=== PATIENT | female | born 1960 | race Caucasian/White ===

== ENCOUNTER 2021-01-10 07:57 | Outpatient (REF) | payer OTHER, SELFPAY ==
--- NOTE | ~2021-01-10 | XR_ITS ---
EXAMINATION: XR CHEST CLINICAL INFORMATION: Renal cancer COMPARISON: Previous chest x-ray October [address] 06/09/2020 TECHNIQUE: Frontal view of the chest was obtained. FINDINGS: No significant abnormality is noted involving the heart, lungs, mediastinum, bony thorax or soft tissues. XR/XR chest 1V IMPRESSION: Unremarkable examination.
[2021-01-10 10:13] LABS: Blood Urea Nitrogen 25 mg/dL (9-16); Estimated Glomerular Filt Rate 46
== END 2021-01-10 07:58 | disposition home or self-care (01) ==
LOC: HO.LAB 07:57
PROVIDERS: PCP Internal Medicine; Visit Provider Urology
DX: N26.1 Atrophy of kidney (terminal) (principal); N28.1 Cyst of kidney, acquired; C64.1 Malignant neoplasm of right kidney, except renal pelvis
CPT/HCPCS: 36415; 71045; 82565; 84520

== ENCOUNTER → 2021-01-15 10:33 | Outpatient (BNVA) | payer OTHER, SELFPAY | PROVIDERS: PCP Internal Medicine; Visit Provider Urology | DX: C64.9 Malignant neoplasm of unspecified kidney, except renal pelvis (principal) | CPT/HCPCS: 99212 ==

== ENCOUNTER 2021-09-05 07:32 | Outpatient (REF) | payer OTHER, SELFPAY ==
[2021-09-05 08:25] LABS: Hematocrit 42.1 % (37-47); Hemoglobin 13.9 g/dl (12.0-16.0); Mean Corpuscular Hemoglobin 29.6 pg (27.0-33.0); Mean Corpuscular Volume 89.8 fL (80-98); Mean Platelet Volume 8.6 fL (9.4-12.3); Platelet Count 278 X10*3/uL (160-400); Red Blood Count 4.69 X10*6/uL (4.20-5.50); Red Cell Distribution Width 13.4 % (11.0-16.0); White Blood Count 10.1 X10*3/uL (4.8-10.8)
[2021-09-05 09:15] LABS: Blood Urea Nitrogen 20 mg/dL (9-16); Estimated Glomerular Filt Rate 38
== END 2021-09-05 07:33 | disposition home or self-care (01) ==
LOC: HO.LAB 07:32
PROVIDERS: PCP Internal Medicine; Visit Provider Urology
DX: N26.1 Atrophy of kidney (terminal) (principal); N28.1 Cyst of kidney, acquired; C64.9 Malignant neoplasm of unspecified kidney, except renal pelvis
CPT/HCPCS: 36415; 82565; 84520; 85027

== ENCOUNTER 2021-09-10 13:42 | Outpatient (REF) | payer OTHER, SELFPAY ==
--- NOTE | ~2021-09-10 | CT_ITS ---
EXAMINATION: CHEST X-RAY CLINICAL INFORMATION: Kidney cancer COMPARISON: Previous chest x-ray December 2020 TECHNIQUE: One view of the chest FINDINGS: The cardiac and mediastinal contours are normal. The lungs are clear. There is no pleural effusion or pneumothorax. There are degenerative changes of the spine. CT/CT abdomen w con IMPRESSION: No evidence for acute disease in the chest. EXAMINATION: CT of the abdomen with IV contrast CLINICAL INFORMATION: Kidney cancer COMPARISON: Previous CT of the abdomen and pelvis May 2020 TECHNIQUE: Axial images through the abdomen following oral and IV contrast. Sagittal and coronal reconstructions on the technologist workstation were performed following oral and 100 mL Omnipaque 350 intravenous contrast. Sagittal and coronal options on the technologist workstation were performed patient dose 9 8 7 mg/cm. This CT examination was performed using dose optimization techniques as appropriate, variously including the following: *Automated exposure control *Adjustment of mA and/or kV according to patient size (this includes techniques or standardized protocols for targeted exams where dose is matched to indication/reason for exam; i.e. extremities or head) *Use of iterative reconstruction technique FINDINGS: The lung bases are clear. The liver is enlarged. The liver is low in attenuation suggestive of fatty lesion. No focal liver lesion is seen. The spleen, pancreas and adrenal glands are normal. The right kidney has been removed. No abnormal soft tissue is seen in the right renal fossa. The left kidney is unremarkable. There is a right lateral abdominal wall or spigelian hernia containing small bowel. There is an umbilical hernia containing fat. There is diverticulosis of the colon. Right lateral abdominal wall or spigelian hernia containing small bowel. No evidence of obstruction. There are no enlarged lymph nodes. Small retroperitoneal lymph node adjacent to the right common iliac vessels that are stable. There is no ascites. Vascular structures are normal. There are degenerative changes of the spine. IMPRESSION: Post surgical changes following right nephrectomy. No evidence of recurrent or metastatic disease. Enlarged fatty liver. Right lateral abdominal wall or spigelian hernia containing all bowel. No evidence of obstruction.
[2021-09-10] MEDS: iohexoL 350 MG/ML 100 ML INFUS..BTL IV (14:57)
== END 2021-09-10 13:43 | disposition home or self-care (01) ==
LOC: HO.CT 13:42
PROVIDERS: PCP Internal Medicine; Visit Provider Urology
DX: C64.9 Malignant neoplasm of unspecified kidney, except renal pelvis (principal)
CPT/HCPCS: 71045; 74160; Q9967

== ENCOUNTER → 2021-10-08 10:32 | Outpatient (BNVA) | payer OTHER, SELFPAY | PROVIDERS: PCP Internal Medicine; Visit Provider Urology ==

== ENCOUNTER 2022-04-17 07:49 | Outpatient (REF) | payer OTHER, SELFPAY ==
--- NOTE | ~2022-04-17 | XR_ITS ---
EXAMINATION: XR CHEST CLINICAL INFORMATION: Renal cancer COMPARISON: September 10, 2021 TECHNIQUE: Frontal view of the chest was obtained. FINDINGS: No significant abnormality is noted involving the heart, lungs, mediastinum, bony thorax or soft tissues. XR/XR chest 1V IMPRESSION: No acute disease.
== END 2022-04-17 07:50 | disposition home or self-care (01) ==
LOC: HO.XRAY 07:49
PROVIDERS: PCP Internal Medicine; Visit Provider Urology
DX: C64.9 Malignant neoplasm of unspecified kidney, except renal pelvis (principal)
CPT/HCPCS: 71045

== ENCOUNTER → 2022-04-21 11:57 | Outpatient (BNVA) | payer OTHER, SELFPAY | PROVIDERS: PCP Internal Medicine; Visit Provider Urology | DX: Z13.89 Encounter for screening for other disorder (principal) ==

== ENCOUNTER 2022-10-09 07:29 | Outpatient (REF) | payer OTHER, SELFPAY ==
[2022-10-09 08:38] LABS: Blood Urea Nitrogen 21 mg/dL (9-16); Estimated Glomerular Filt Rate 38
== END 2022-10-09 07:30 | disposition home or self-care (01) ==
LOC: HO.LAB 07:29
PROVIDERS: PCP Internal Medicine; Visit Provider Urology
DX: C64.9 Malignant neoplasm of unspecified kidney, except renal pelvis (principal)
CPT/HCPCS: 36415; 82565; 84520

== ENCOUNTER 2022-10-19 14:36 | Outpatient (REF) | payer OTHER, SELFPAY ==
--- NOTE | ~2022-10-19 | CT_ITS ---
EXAMINATION: CT CHEST WITH CONTRAST CLINICAL INFORMATION: History of kidney cancer COMPARISON: Previous chest x-ray most recent March [address] May 2020 TECHNIQUE: Multidetector volumetric CT imaging of the chest was obtained after the administration of 85 mL of Omnipaque 350 intravenous contrast without immediate adverse reactions. Axial MIP volume rendering provided. Sagittal and coronal reformatted images were obtained. This CT examination was performed using dose optimization techniques as appropriate, variously including the following: *Automated exposure control *Adjustment of mA and/or kV according to patient size (this includes techniques or standardized protocols for targeted exams where dose is matched to indication/reason for exam; i.e. extremities or head) *Use of iterative reconstruction technique DLP: 247 mGy-cm FINDINGS: LUNGS: 2 mm left upper lobe nodule axial image 53 series 6. 4 mm left lower lobe nodule axial image 59 series 6. 4 mm left upper lobe nodule axial image 61 series 6. These are stable. No new pulmonary nodule. MEDIASTINUM: The left lobe of the thyroid gland may be enlarged and heterogeneous. This is similar to 2020 exam. No hilar or mediastinal lymph nodes. Normal heart size. No pericardial effusion. Normal caliber thoracic aorta. Mild coronary artery calcification. PLEURA: There is no pleural effusion. No pleural mass or thickening. AXILLA: No lymphadenopathy. UPPER ABDOMEN: Fatty infiltration of the liver. Postcholecystectomy. Stable peripheral calcification in the right lobe. OSSEOUS STRUCTURES: Degenerative changes of the spine. CT/CT chest w IV con IMPRESSION: Stable small left pulmonary nodules. Recommend follow-up as per protocol. Fleischner guidelines were followed.
--- NOTE | ~2022-10-19 | CT_ITS ---
EXAMINATION: CT ABDOMEN AND PELVIS WITHOUT AND WITH CONTRAST CLINICAL INFORMATION: Kidney cancer COMPARISON: Previous CT of the abdomen and pelvis August 2021 TECHNIQUE: Multidetector volumetric imaging was performed of the abdomen and pelvis before and after the IV administration of 85 mL of Omnipaque 300 intravenous contrast. Sagittal and coronal reformatted images were obtained on the technologist's workstation. This CT examination was performed using dose optimization techniques as appropriate, variously including the following: *Automated exposure control *Adjustment of mA and/or kV according to patient size (this includes techniques or standardized protocols for targeted exams where dose is matched to indication/reason for exam; i.e. extremities or head) *Use of iterative reconstruction technique DLP: 2527 mGy-cm for combined CT of the chest, abdomen and pelvis FINDINGS: LIVER, GALLBLADDER, AND BILIARY TREE: Enlarged fatty liver. No focal liver lesion. Postcholecystectomy. No biliary duct dilatation. PANCREAS: Unremarkable SPLEEN: Unremarkable ADRENAL GLANDS: Unremarkable KIDNEYS AND URETERS: The right kidney is been removed. No mass in the right renal fossa is seen. There is cortical thinning or scarring in the lower pole the left kidney. The left kidney is otherwise normal. BLADDER: Unremarkable GASTROINTESTINAL TRACT: There is diverticulosis of the colon. There is a questionable area of wall thickening in the proximal sigmoid colon and stranding of the adjacent fat. Appearance is questionable for mild diverticulitis. Right lower quadrant low lateral or spigelian hernia containing small bowel.. ABDOMINAL WALL: Umbilical hernia containing fat. Right low lateral abdominal wall hernia containing small bowel. No evidence of obstruction. LYMPH NODES: Normal VASCULAR: Unremarkable PELVIC VISCERA: Unremarkable OSSEOUS STRUCTURES: Degenerative changes of the spine and hip joints. CT/CT abdomen pelvis wo/w IV con IMPRESSION: Post surgical changes following right nephrectomy. No evidence of recurrent or metastatic disease. Diverticulosis and question mild sigmoid diverticulitis. Enlarged fatty liver. Right lateral abdominal wall or spigelian hernia containing all bowel. No evidence of obstruction. Umbilical hernia containing fat. Findings will be communicated by the [place] work flow rangelands conservation laborer. Fleischner guidelines were followed.
[2022-10-19] MEDS: iohexoL 350 MG/ML 75 ML INFUS..BTL 85 ML IV (15:58)
== END 2022-10-19 14:37 | disposition home or self-care (01) ==
LOC: HO.CT 14:36
PROVIDERS: PCP Internal Medicine; Visit Provider Urology
DX: C64.9 Malignant neoplasm of unspecified kidney, except renal pelvis (principal)
CPT/HCPCS: 71260; 74178; Q9967

== ENCOUNTER → 2022-10-26 10:03 | Outpatient (BNVA) | payer OTHER, SELFPAY | PROVIDERS: PCP Internal Medicine; Visit Provider Urology | DX: R39.15 Urgency of urination (principal); C64.9 Malignant neoplasm of unspecified kidney, except renal pelvis; N32.81 Overactive bladder | CPT/HCPCS: 99212 ==

== ENCOUNTER → 2023-01-04 14:07 | Outpatient (BNVA) | payer OTHER, SELFPAY | PROVIDERS: PCP Internal Medicine; Visit Provider Urology | DX: Z13.89 Encounter for screening for other disorder (principal) ==

== ENCOUNTER 2023-04-30 07:51 | Outpatient (REF) | payer OTHER, SELFPAY ==
--- NOTE | ~2023-04-30 | XR_ITS ---
EXAMINATION: XR CHEST CLINICAL INFORMATION: Malignant neoplasm of kidney COMPARISON: Previous chest x-ray March [address] September 2022 TECHNIQUE: Frontal view of the chest was obtained. FINDINGS: No significant abnormality is noted involving the heart, lungs, mediastinum, bony thorax or soft tissues. XR/XR chest 1V IMPRESSION: Unremarkable examination.
== END 2023-04-30 07:52 | disposition home or self-care (01) ==
LOC: HO.XRAY 07:51
PROVIDERS: PCP Internal Medicine; Visit Provider Urology
DX: C64.9 Malignant neoplasm of unspecified kidney, except renal pelvis (principal)
CPT/HCPCS: 71045

== ENCOUNTER → 2023-05-04 14:23 | Outpatient (BNVA) | payer OTHER, SELFPAY | PROVIDERS: PCP Internal Medicine; Visit Provider Urology | DX: C64.1 Malignant neoplasm of right kidney, except renal pelvis (principal); N32.81 Overactive bladder; K43.2 Incisional hernia without obstruction or gangrene; Z79.899 Other long term (current) drug therapy | CPT/HCPCS: 99212 ==

== ENCOUNTER → 2023-12-06 10:32 | Outpatient (BNV) | payer MEDICAID, OTHER, SELFPAY | PROVIDERS: PCP Internal Medicine; Referring Provider Urology; Visit Provider Internal Medicine Medical Oncology | DX: C64.1 Malignant neoplasm of right kidney, except renal pelvis (principal); E04.1 Nontoxic single thyroid nodule | CPT/HCPCS: 99204; 99213; 99214 ==

== ENCOUNTER 2024-01-19 15:40 | Outpatient (REF) | payer OTHER, SELFPAY ==
[2024-01-19 16:49] LABS: Blood Urea Nitrogen 29 mg/dL (9-16); Estimated Glomerular Filt Rate 42
== END 2024-01-19 15:41 | disposition home or self-care (01) ==
LOC: HO.LAB 15:40
PROVIDERS: PCP Internal Medicine; Visit Provider Urology
DX: C64.9 Malignant neoplasm of unspecified kidney, except renal pelvis (principal)
CPT/HCPCS: 36415; 82565; 84520

== ENCOUNTER 2024-01-20 12:25 | Outpatient (REF) | payer OTHER, SELFPAY ==
--- NOTE | ~2024-01-20 | CT_ITS ---
EXAMINATION: CT ABDOMEN WITHOUT AND WITH CONTRAST CLINICAL INFORMATION: Malignant neoplasm of kidney. COMPARISON: 10/19/2022 TECHNIQUE: Contiguous axial thin section helical images of the abdomen were performed before and after the administration of oral contrast and 85 mL of Omnipaque 350 intravenous contrast. The data set was reformatted in the coronal and sagittal planes and reviewed on an independent workstation. This CT examination was performed using dose optimization techniques as appropriate, variously including the following: *Automated exposure control *Adjustment of mA and/or kV according to patient size (this includes techniques or standardized protocols for targeted exams where dose is matched to indication/reason for exam; i.e. extremities or head) *Use of iterative reconstruction technique DLP: 1434 mGy-cm FINDINGS: LUNG BASES: No pleural or pericardial effusion. LIVER, GALLBLADDER, AND BILIARY TREE: 1.3 cm cyst at the hepatic dome. The liver is enlarged. The liver is decreased in attenuation. No biliary ductal dilatation. The gallbladder is surgically absent. PANCREAS: No ductal dilatation. SPLEEN: Not enlarged. ADRENAL GLANDS AND KIDNEYS: No adrenal mass. The right kidney is surgically absent. No residual or recurrent soft tissue mass in the nephrectomy bed. The left kidney enhances normally. There is a 2 mm nonobstructing calculus lower pole left kidney. No hydronephrosis or perinephric fluid collection. BOWEL LOOPS: Imaged loops of small and large bowel are not obstructed. LYMPH NODES: Right iliac chain lymph node measures 1.1 x 1.2 cm and is unchanged. VASCULAR: Normal caliber abdominal aorta. ABDOMINAL WALL: Right ventral hernia containing nonobstructed small bowel. BONES: No destructive bone lesions. CT/CT abdomen wo/w IV con IMPRESSION: Status post right nephrectomy. No evidence of recurrent disease. 2 mm nonobstructing lower pole left renal calculus. Hepatomegaly and hepatic steatosis. Right lateral abdominal wall hernia.
[2024-01-20] MEDS: iohexoL 350 MG/ML 100 ML INFUS..BTL 85 ML IV (13:00)
== END 2024-01-20 12:26 | disposition home or self-care (01) ==
LOC: HO.CT 12:25
PROVIDERS: PCP Internal Medicine; Visit Provider Urology
DX: C64.9 Malignant neoplasm of unspecified kidney, except renal pelvis (principal)
CPT/HCPCS: 74170; Q9967

== ENCOUNTER 2024-02-08 14:42 | Outpatient (AMB) | payer MEDICAID, SELFPAY ==
--- NOTE | 2024-02-08 15:27 | A.OFFVIS_ITS ---
Intake Visit Reasons: 6w/CT(set)portal confirmed Intake Note: Patient presents today for a follow-up on CT Scan Meds- Oxybutynin Allergies to Antibiotic- Penicillin G Blood Thinner- None Real Estate Attorney Required: No Accompanied by: daugther Allergies penicillin G Allergy (Unknown, Verified 02/20/24 13:39) Unknown Medication List - Last Reconciled 03/08/24 by Sawyer Askew MD acetaminophen 650 mg PO Q4H PRN albuterol sulfate 90 mcg/actuation (ProAir HFA) 1 puff inhalation Q6H PRN calcium citrate-vitamin D3 315 mg-5 mcg (200 unit) 2 tabs PO BID fluticasone propionate 50 mcg/actuation 50 mcg intranasal DAILY lenvatinib 20 mg PO DAILY levothyroxine 200 mcg PO QAM lisinopril 10 mg PO DAILY loperamide (Anti-Diarrheal (loperamide)) 2 mg PO Q6H PRN Magic Mouthwash Diphen/Nystat/Antacid 1:1:1 5 mL PO TID metformin ER 1,000 mg PO BID ondansetron 8 mg PO Q8H oxybutynin chloride ER 10 mg PO DAILY 90 days venlafaxine ER 37.5 mg PO DAILY HPI Comments Details: Dixie FOSS is a very pleasant female. She is a patient of Dr Morris. She is seen for the following urologic conditions. - renal cancer - overactive bladder Yearly follow-up kidney cancer KUB normal Oxybutynin continues to be effective - refill Has concerns regarding incisional hernia on lower right abdominal side May well be starting injectable diabetic medication - this is associated with some degree of weight loss Previously discussed intrinsic limitations to repair of lateral body wall which often is result of nerve damage and muscle atrophy which is difficult to correct with typical mesh reinforcement Six month follow-up then can move to yearly Overactive bladder Initial symptoms Urgency and frequency, Involved in bathroom planning, Using supermarket bathrooms , Occasional accidents Current therapy oxybutynin Renal lesion: Nephrectomy January 2020 pT2 [place] 4 cancer with central necrosis Creatinine 1.3 Continue chest x-ray every 6 months out to 3 years then every year - abdominal CT scan yearly for 2 years then every 2nd year to 10 years. They present for Post surgical evaluation, continued followup and management The renal mass was diagnosed 11/08 , incidentally, during evaluation for, GI symptoms - weight loss surgery planning - lesion seen on ultrasound. Imaging included 11/08 , a CT (computed tomography) scan of the abdomen/pelvis - right lower pole kidney 8 cm lesion with central necrosis. Contained within Gerota's fascia. No obvious lymphadenopathy. - chest x-ray no evidence of disease 06/09 - , a CT (computed tomography) scan of the abdomen/pelvis/chest - NAD - 09/10 CT scan abdomen normal, chest x-ray normal - 10/12 CT chest in abdomen no evidence of recurrence. Right lateral sidewall hernia - 05/13 chest x-ray normal - 02/11 CT abdomen. No evidence recurrence. Right sidewall hernia. Prior treatment(s) included Dr Morris - right nephrectomy laparoscopic January 2020. Staging of initial cancer T2. The diagnosis was renal cell carcinoma. Recent labs include 06/09 Cr 1.1, 09/10 1.3 Follow up imaging includes chest xray, abdominal CT scan. Planned therapeutic plan further surveillance with imaging and laboratory investigations appropriate for pathology findings and patient performance status PFSH Medical History Diabetes mellitus Malignant neoplasm of right kidney Vitamin D deficiency Essential hypertension Super obesity Surgical History S/P removal of thyroid nodule (~11/01/23) Family History Brother Breast cancer Melanoma Social History Household Members: Children and Adopted Family Patient Tobacco Use Status: Never used Tobacco service: No Current occupational status: employed Review of Systems Const Denies chills and Denies fever(s) Card Reports no additional complaints and Denies syncope Resp Denies cough GI Denies abdominal pain and Denies heartburn Reports as per HPI and Denies change in libido Neuro Denies syncope Psych Denies change in libido Endo Denies change in libido Physical Exam Const General: cooperative, healthy appearing, comfortable and no acute distress Orientation/consciousness: patient oriented x3 HEENT Face and sinus: Yes normal facial exam Mouth: moist mucous membranes Neck Neck: Yes normal visual inspection, Yes full ROM and Yes trachea midline Chest Chest palpation & inspection: normal inspection of the chest Resp Effort & Inspection: normal respiratory effort, able to speak in complete sentences and no respiratory distress GI Inspection: Yes normal to inspection Back/Spine/Pelvis Cervical Spine: normal cervical lordosis Thoracic/Lumbar Spine: thoracic and lumbar spine normal to inspection Skin General skin exam: no rashes or lesions noted Neuro General: patient oriented x3, gait normal, tone normal and moves all extremities Extrem General: Yes normal to inspection and Yes capillary refill normal Assessment & Plan Assessment & Plan (1) Metastatic renal cell carcinoma: Code(s): C64.9 - Malignant neoplasm of unspecified kidney, except renal pelvis Category: Medical (2) Overactive bladder: Comment: Good response oxybutynin Code(s): N32.81 - Overactive bladder Category: Medical (3) Renal cancer: Comment: Nephrectomy January 2020 PT2 Grade 4 Code(s): C64.9 - Malignant neoplasm of unspecified kidney, except renal pelvis Category: Medical Plan Six-month follow-up imaging Patient Instructions: Imaging studies, laboratory and physical exam results were discussed and reviewed in detail. No major barriers to patient understanding were identified. An opportunity to ask questions regarding the treatment plan was provided. All questions were answered. The patient expressed understanding and agreement with the above treatment plan. The patient is aware they should contact our office by phone for worsening of their current condition or the appearance of new urologic symptoms. Compliance is encouraged with any medications and followup testing that is ordered. It is a privilege to participate in the urologic care of your patient. If you have any questions or concerns regarding treatment for the above conditions, or other urologic issues, please do not hesitate to contact me. The office telephone contact is [phone]. This note is constructed using voice recognition software. While every effort has been made to ensure accuracy car body designer errors may have been included. Yours sincerely, Dr Sawyer Askew MD, [facility] - Urology Providers of Expert, Compassionate Care for the Genitourinary System
== END 2024-02-08 15:48 | disposition home or self-care (01) ==
PROVIDERS: PCP Internal Medicine; Visit Provider Urology
DX: C64.9 Malignant neoplasm of unspecified kidney, except renal pelvis (principal); N32.81 Overactive bladder
CPT/HCPCS: 99213

== ENCOUNTER → 2024-02-08 14:42 | Outpatient (BNVA) | payer MEDICAID, SELFPAY | PROVIDERS: PCP Internal Medicine; Visit Provider Urology | DX: C64.9 Malignant neoplasm of unspecified kidney, except renal pelvis (principal); N32.81 Overactive bladder | CPT/HCPCS: 99212 ==

== ENCOUNTER → 2024-02-28 13:42 | Outpatient (REF) | payer MEDICAID, SELFPAY ==
--- NOTE | 2024-02-28 13:44 | CA_ITS ---
Transthoracic Echocardiogram Patient (Last, First, Middle): Dixie Christensen A Gender: Female Date of : 1960 Age: 64 Procedure Date: 02/28/2024 Procedure Type: Transthoracic Echocardiogram Location: OP Height: 157.48 cm Weight: 153. kg BSA: 2.39 m2 Heart Rate: 70 bpm BP: 162 / 74 mmHg Color Paste Mixer: GRAEME Referring MD: Landon Hutchinson MD Supervisor [employer]: Js Cantrell MD Symptoms: metastatic renal cell carcinoma. Study Quality: Technically Difficult ECG Rhythm: Sinus Conclusions: - 1. Technically limited study despite use of contrast agent 2. Hyperdynamic LV EF of 70% with asymmetric septal hypertrophy 3. Cardiac valves not well visualized with normal cardiac valvular Doppler Findings Procedure Information Contrast agent, definity, is being given per protocol without apparent complications. The quality of the study was technically difficult. The study quality is limited by patients body habitus. Left Ventricle Normal left ventricular cavity size. There is normal left ventricular wall thickness. The left ventricular systolic function is hyperdynamic. The visually estimated ejection fraction is >70%. Regional wall motion abnormalities can not be excluded due to suboptimal endocardial definition. Spectral Doppler is indicative of an impaired relaxation filling pattern. There is mild septal asymmetric hypertrophy. Right Ventricle Normal right ventricular cavity size and systolic function. Atria The left atrium was not well visualized. Interatrial shunt cannot be excluded. The right atrium was not well visualized. Aortic Valve The aortic valve was not well visualized. There is no aortic valve stenosis. There is no aortic valve regurgitation. Mitral Valve The mitral valve was not well visualized. There is trace mitral valve regurgitation. There is no mitral valve stenosis. Pulmonic Valve The pulmonic valve was not well visualized. Tricuspid Valve The tricuspid valve was not well visualized. Tricuspid regurgitation envelope is inadequate for calculation of right ventricular systolic pressure. Great Vessels The pulmonary artery was not well visualized. There is no dilatation of the ascending aorta measuring 3.40 cm. Venous The inferior vena cava is normal in size and collapses greater than 50% with inspiration. Pericardium/Pleural The pericardium was not well visualized. Prior Study Comparison No prior study available for comparison. Measurements 2D Linear Measurements IVSd: 1.06 0.6-0.9/0.6-1.0 cm LA Diam: 3.70 2.7-3.8/3.0-4.0 cm LAIDs Index: 1.55 1.5-2.3 cm/m2 LVOT Diam: 1.90 3.0+(-)1.3 cm 2D Systolic Function EF 4C: 77.00 >55% EF 2C: 80.30 >55% EF BiP: 79.30 >55% Mitral Valve MV Pk E: 0.51 MV PK A: 0.58 MV Decel Time: 264.00 E/A: 0.90 E'Lateral: 4.35 E/E' Lat: 11.60 PHT: 77.00 MVA PHT: 2.86 Decel [place]: 1.92 Aortic Valve AoV Pk [place]: 0.82 AoV Pk Grad: 3.00 CARLOS: 2.17 LVOT LVOT Pk [place]: 0.63 LVOT Mn [place]: 0.42 LVOT VTI: 0.12 LVOT Pk Grad: 2.00 LVOT Mn Grad: 1.00 LVOT Diam: 1.90 LVOT Area: 2.84 Diastolic Function MV Pk E: 0.51 MV Pk A: 0.58 E/A: 0.90 E' Laterial: 4.35 E/E' Lat: 11.60 Right Ventricle TVS' [place]: 7.70 Great Vessels Aorta Sinus of Valsalva: 2.70 2.0-3.5 cm Ao Asc: 3.40 2.1-3.4 cm Pulmonary Valve PV Pk [place]: 0.70 Peak PV Grad: 2.00 Updated in Other Vendor System with Status of Final Js Cantrell MD electronically signed on 02/29/2024 11:45:42 AM with status of Final
== END ==
LOC: HO.CARD 13:42
PROVIDERS: PCP Internal Medicine; Visit Provider Internal Medicine Medical Oncology
DX: C64.9 Malignant neoplasm of unspecified kidney, except renal pelvis (principal)
CPT/HCPCS: 93306; Q9957

== ENCOUNTER → 2024-02-28 13:44 | Outpatient (BNV) | payer MEDICAID, SELFPAY | PROVIDERS: PCP Internal Medicine; Visit Provider Internal Medicine Cardiovascular Disease | DX: I42.2 Other hypertrophic cardiomyopathy (principal) | CPT/HCPCS: 93306 ==

== ENCOUNTER 2024-03-21 12:51 | Day surgery (SDC) | payer MEDICAID, SELFPAY ==
--- NOTE | ~2024-03-21 | IR_ITS ---
PROCEDURE: IR INSERTION OF TUNNEL CATHETER CLINICAL INFORMATION: Metastatic renal cell cancer TECHNIQUE/Findings: All elements of maximal sterile barrier technique followed including use of cap, mask, sterile gown, sterile gloves, a sterile full body drape and hand hygiene. Also followed skin preparation with 2% chlorhexidine for cutaneous antisepsis, and sterile ultrasound preparation with sterile gel and probe cover when applicable. The risks, benefits, and alternatives of the procedure and associated intravenous sedation were discussed and informed consent was obtained. The patient was brought the Interventional Suite and placed supine on the angiography table. Preliminary limited ultrasound examination was performed and showed a patent, fully compressible right internal jugular (IJ) vein. The right side of the neck and adjacent anterior chest wall were prepped and draped using sterile technique. Pre-procedure time-out was performed and verified appropriate patient identity, site, side, procedure, and availability of necessary materials. After local anesthesia, a micropuncture set was used to gain access to the right internal jugular (IJ) vein under direct real-time combined ultrasonographic and fluoroscopic guidance. A micropuncture sheath was placed over an 0.018? wire. Local anesthesia was given at the level of the chest wall. A subcutaneous pocket was formed along the right upper chest by making a transverse incision long enough to accommodate the reservoir, and the pocket was made caudal to the incision by blunt dissection. The catheter was advanced over a blunt tunneler from the transverse chest incision and its tip was exteriorized at the venotomy site. the peel-away sheath. The catheter tip was inserted via the sheath under controlled respiration. The sheath was removed. The catheter was trimmed to the appropriate length (23 cm) in beveled fashion and was attached to the Port reservoir. The reservoir was accessed with a needle and aspirated and flushed well, without visible leak. The reservoir was inserted into the tightly fit subcutaneous pocket and the pocket was flushed with antibiotic solution. A final fluoroscopic image was obtained and stored, showing satisfactory position of the Port reservoir and catheter, with its tip near the cavoatrial junction and no catheter kinking. The skin incision was closed with a deep layer of separate 2-0 resorbable sutures and topical adhesive superficially, and the venotomy incision was closed with topical adhesive. The Port was re-accessed and excellent bidirectional flow was noticed on aspiration and flushing of the Port, which was flushed with heparinized saline, hep-locked, and then de-accessed. A sterile dressing was applied. The patient tolerated the procedure very well without immediate complication. IR/IR cvc insert tunnel w prt/microfilm duplicating unit supervisor IMPRESSION: Insertion of right IJ approach Port-A-Cath. Catheter is ready for immediate use.
[2024-03-21 13:16] VITALS: BMI 62.0
[2024-03-21 13:52] LABS: Prothrombin Time 11.6 SEC (11.1-13.3)
[2024-03-21 13:55] LABS: Partial Thromboplastin Time 32.9 SEC (26.0-36.8)
[2024-03-21 14:06] LABS: Glucose, Whole Blood 151 mg/dL (60-115)
--- NOTE | 2024-03-21 14:33 | MHC.SHP ---
Pre-Procedural Eval Section A - 24 Hr Update-Section A only Date of Service: 03/21/24 Section B - Complete if H&P > 30 days Chief Complaint: CARCINOMA Details of Present Illness: Renal cell carcinoma with poor iv access Relevant Family History (Specify if Yes): No Relevant Social History: None Present Medications: see Short Stay Collaborative assessment Medical History: No relevant PMH History of Previous Operations: No relevant previous surgery Allergies: Allergies Allergy/AdvReac Type Severity Reaction Status Date / Time penicillin G Allergy Unknown Unknown Verified 03/21/24 13:33 Review of Systems Sugical H&P ROS: Negative: Constitution, Cardiovascular and Respiratory Exam Surgical H&P Exam: Normal: Heart, Normal: Lungs, Normal: Skin and Normal: Neurological and Not Evaluated: HEENT Plan Diagnosis/Plan: Unchanged I have reviewed the history and physical and performed a pertinent physical examination on my patient. No changes have occurred unless specified. Port placement for immunotherapy Time Spent With Patient Time: Total time managing care of this patient today ____ minutes.
[2024-03-21 16:15] VITALS: BP 154/82; PULSE 81; RESP 14; TEMP 36.1; O2SAT 97
[2024-03-21 16:30] VITALS: BP 153/89; PULSE 79; RESP 16; O2SAT 98
[2024-03-21 16:45] VITALS: BP 147/86; PULSE 79; RESP 18; O2SAT 97
[2024-03-21 17:00] VITALS: BP 148/90; PULSE 80; RESP 18; O2SAT 98
[2024-03-21 17:15] VITALS: BP 148/90; PULSE 78; RESP 18; TEMP 36.1; O2SAT 98
== END 2024-03-21 17:22 | disposition home or self-care (01) ==
PROVIDERS: Physician Assistant Surgical; Student in an Organized Health Care Education/Training Program; PCP Internal Medicine; Visit Provider Internal Medicine Medical Oncology
DX: Z45.2 Encounter for adjustment and management of vascular access device (principal); C64.1 Malignant neoplasm of right kidney, except renal pelvis; C79.89 Secondary malignant neoplasm of other specified sites; I10 Essential (primary) hypertension; E11.9 Type 2 diabetes mellitus without complications; E55.9 Vitamin D deficiency, unspecified; E66.9 Obesity, unspecified; Z79.84 Long term (current) use of oral hypoglycemic drugs; Z79.899 Other long term (current) drug therapy; Z88.0 Allergy status to penicillin
CPT/HCPCS: 36415; 36561; 76937; 82947; 85610; 85730; 99152; 99153; A4364; C1769; C1788; J0736; J1642; J1644; J2250; J2310; J3010; J3370

== ENCOUNTER → 2024-03-21 14:21 | Outpatient (BNV) | payer MEDICAID, SELFPAY | PROVIDERS: PCP Internal Medicine; Visit Provider Student in an Organized Health Care Education/Training Program | DX: C79.00 Secondary malignant neoplasm of unspecified kidney and renal pelvis (principal) | CPT/HCPCS: 36561; 76937; 77001; 99152 ==

== ENCOUNTER 2024-06-28 06:29 | Outpatient (REF) | payer MEDICAID, SELFPAY ==
--- NOTE | ~2024-06-28 | CT_ITS ---
EXAMINATION: CT CHEST, ABDOMEN AND PELVIS WITH CONTRAST CLINICAL INFORMATION: Follow-up renal cell carcinoma. On immunotherapy. COMPARISON: 01/20/2024 and 10/19/2022 TECHNIQUE: Multidetector volumetric imaging was performed of the chest, abdomen and pelvis following administration of 100 mL Omnipaque 300 intravenous contrast. Oral contrast was administered. Sagittal and coronal reformatted images were obtained on the technologist's workstation. This CT examination was performed using dose optimization techniques as appropriate, variously including the following: *Automated exposure control *Adjustment of mA and/or kV according to patient size (this includes techniques or standardized protocols for targeted exams where dose is matched to indication/reason for exam; i.e. extremities or head) *Use of iterative reconstruction technique DLP: 1275 mGy-cm FINDINGS: CHEST: LUNGS: 3 mm nodule left upper lobe on image 144. 3 mm nodule left upper lobe on image 158. 4 mm nodules along the right major fissure on images 187 and 196. No focal consolidation. Central airways are patent. PLEURA: No pleural effusion. MEDIASTINUM: No bulky mediastinal, hilar or axillary lymphadenopathy. Great vessels are of normal caliber. Heart size is normal. No pericardial effusion. CORONARY ARTERY CALCIFICATION: Mild. CHEST WALL: No acute abnormality. ABDOMEN AND PELVIS: LIVER AND BILIARY TREE: The liver is decreased in attenuation. 1.6 cm cyst at the hepatic dome. No biliary ductal dilatation. The gallbladder is surgically absent. PANCREAS: Unremarkable. SPLEEN: Measures 14.2 cm in AP dimension. ADRENAL GLANDS: No adrenal mass. KIDNEYS AND URETERS: Status post right nephrectomy. No recurrent mass or abnormal enhancement nephrectomy bed. The left kidney is lobulated in contour without hydronephrosis or perinephric fluid collection. GASTROINTESTINAL TRACT: Small hiatal hernia. No small bowel obstruction. Moderate retained stool in the colon. VASCULAR: Unremarkable. LYMPH NODES: Stable right iliac chain lymph nodes measure 1.2 x 1.2 cm. FREE FLUID: No free fluid. BLADDER: Unremarkable PELVIC VISCERA: Unremarkable. OSSEOUS STRUCTURES: No destructive bone lesions. There is a right lateral abdominal wall hernia containing small bowel measuring 11.3 x 5.6 x 12.4 cm. The neck of the hernia measures 6.8 cm. No associated inflammatory changes. CT/CT abdomen pelvis w IV con IMPRESSION: Status post right nephrectomy. No new disease in the chest, abdomen or pelvis.
[2024-06-28] MEDS: iohexoL 350 MG/ML 100 ML INFUS..BTL IV (10:16)
== END 2024-06-28 06:30 | disposition home or self-care (01) ==
LOC: HO.CT 06:29
PROVIDERS: PCP Internal Medicine; Visit Provider Internal Medicine Medical Oncology
DX: C64.9 Malignant neoplasm of unspecified kidney, except renal pelvis (principal)
CPT/HCPCS: 71260; 74177; Q9967

== ENCOUNTER 2024-07-20 12:35 | Outpatient (AMB) | payer MEDICAID, SELFPAY ==
--- NOTE | 2024-07-20 13:03 | A.OFFVIS_ITS ---
Vital Signs 3 07/20/24 13:05 Height 5 ft 2 in Weight 337 lb BMI 61.6 BP 136/63 Blood Pressure Location Rt radial Position Sitting Pulse 102 H Intake Visit Reasons: lip lesion Intake Note: Patient referred by Dr. Hutchinson for lesion on Lt upper lip. Has been present for 1m. Patient c/o: on and off bleeding. 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 She subsequently developed metastatic renal cell on her thyroid in 11/09/2023. She now has a one-month history of a lesion of the right upper lip which has increased in size and is now causing bleeding. This initially started as a small skin tag but is rapidly increased in size especially over the past week. She presents today for excision of this bleeding lesion. [facility] Medical History Diabetes mellitus Malignant neoplasm of right kidney Vitamin D deficiency Essential hypertension Super obesity Surgical History S/P removal of thyroid nodule (~11/01/23) Family History Brother Breast cancer Melanoma Social History Household Members: Children and Adopted Family Patient Tobacco Use Status: Never used Tobacco service: No Current occupational status: employed Review of Systems Const All systems reviewed & are unremarkable except as noted in HPI and below Physical Exam Const General: comfortable Nutritional Appearance: obese Orientation/consciousness: patient oriented x3 HEENT Nose image: 2 1. 1 cm raised red lesion in the right upper lip with ulceration at the tip suggestive of a skin neoplasm or pyogenic granuloma Resp Effort & Inspection: normal respiratory effort, no audible wheezes, no cough and no respiratory distress GI Inspection: Yes normal to inspection Neuro General: patient oriented x3 Office Procedures Excision Details: Preoperative diagnosis: Skin lesion right upper lip Postoperative diagnosis: Same Procedure: Excision of skin lesion right upper lip Surgeon: Benjamin Alfredo MD Epidemiology Intern: None Anesthesia: Lidocaine 1% with epinephrine Indications for procedure: 64-year-old female with a prior history of renal cell carcinoma now with a bleeding lesion of the right upper lip Operative findings: 1 cm raised ulcerated lesion right upper lip Specimen: Lesion right upper lip Estimated blood loss: Less than 1 mL Complications: None Procedure details: Patient was placed in a supine position in the procedure room. After assuring informed consent and confirming the site of surgery the skin was prepped with Betadine and draped in a sterile fashion. Local anesthesia was then infiltrated under the lesion. The lesion was then excised with a scalpel and the base cauterized with electrocautery. A single 5 0 nylon suture was then placed assure adequate hemostasis. The patient tolerated the procedure and was discharged in stable condition. [id number] face/ear/eyelid/nose/lip/mucous membrane 0.6cm-1cm Procedure code (CPT) selection complete Assessment & Plan Assessment & Plan (1) Metastatic renal cell carcinoma: Code(s): C64.9 - Malignant neoplasm of unspecified kidney, except renal pelvis Category: Medical (2) Lesion of lip: Code(s): K13.0 - Diseases of lips Category: Medical Plan Patient underwent excision of the right upper lip skin lesion. Lesion will be sent to pathology for further examination. She will return in 1 week for wound check and suture removal. She will continue her follow-up with Dr. Hutchinson Orders: Orders 2 Surgical Today C64.9 - Malignant neoplasm of unspecified kidney, except renal pelvis, K13.0 - Diseases of lips Coding Level of Care Code New Pt Level 4 (66452) Diagnoses Metastatic renal cell carcinoma C64.9 Lesion of lip K13.0 CPT Codes Face/Ear/Eyelid/Nose/Lip/Mucous Membrane - CPT: 28914-[id number] face/ear/eyelid/nose/lip/mucous membrane 0.6cm-1cm ([id number])
[2024-07-20 13:05] VITALS: BP 136/63; PULSE 102; BMI 61.6
== END 2024-07-20 13:27 | disposition home or self-care (01) ==
PROVIDERS: PCP Internal Medicine; Visit Provider Surgery
DX: D18.01 Hemangioma of skin and subcutaneous tissue (principal); C64.9 Malignant neoplasm of unspecified kidney, except renal pelvis
CPT/HCPCS: 11441; 99204

== ENCOUNTER 2024-07-20 12:35 | Outpatient (REF) | payer MEDICARE, MEDICAID, SELFPAY | END 2024-07-20 12:36 | disposition home or self-care (01) | LOC: HO.LNP 12:35 | PROVIDERS: PCP Internal Medicine; Visit Provider Surgery | DX: D18.01 Hemangioma of skin and subcutaneous tissue (principal); C64.9 Malignant neoplasm of unspecified kidney, except renal pelvis | CPT/HCPCS: 11441; 88304; 88341; 88342; 99202 ==

== ENCOUNTER 2024-07-26 15:14 | Outpatient (AMB) | payer MEDICAID, SELFPAY ==
--- NOTE | 2024-07-26 15:20 | MHC.OFFVIS ---
Vital Signs 07/26/24 15:25 Height 5 ft 2 in Weight 335 lb 1.642 oz BMI 61.3 BP 130/62 Blood Pressure Location Lt brachial Position Sitting Intake Visit Reasons: 1 week follow up lip lesion Intake Note: Patient is seen in office for post op assessment post excision of the right upper lip skin lesion. 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 Accompanied by: Family/Other Allergies penicillin G Allergy (Unknown, Verified 07/26/24 15:25) Unknown Medication List - Last Reconciled 07/27/24 by Benjamin Alfredo MD acetaminophen 650 mg PO Q4H PRN albuterol sulfate 90 mcg/actuation (ProAir HFA) 1 puff inhalation Q6H PRN amoxicillin-pot clavulanate 875-125 mg 1 tab PO Q12H barium sulfate 2%(w/v) (Readi-Cat 2) 450 mL PO TID zuiaynnlg-tnlqjlu-bpdcknli-pet 20-3-1-64.9 % (Anbesol Cold Sore) 1 ea topical QID butenafine 1% (Lotrimin Ultra) 1 appl topical BID calcium citrate-vitamin D3 315 mg-5 mcg (200 unit) 2 tabs PO BID chair, wheel (Wheel chair) As Directed duloxetine 20 mg PO BID duloxetine (Cymbalta) 20 mg PO BID fluconazole (Diflucan) 100 mg PO DAILY fluconazole (Diflucan) 100 mg PO DAILY fluticasone propionate 50 mcg/actuation 50 mcg intranasal DAILY food supplemt, lactose-reduced (Ensure Plus) 1 ea PO TID levothyroxine 200 mcg PO QAM levothyroxine 25 mcg PO DAILY levothyroxine 200 mcg PO DAILY levothyroxine 50 mcg PO DAILY lidocaine HCl 2% (Lidocaine Viscous) 1 appl mucous membrane TID lisinopril 10 mg PO DAILY loperamide (Anti-Diarrheal (loperamide)) 2 mg PO Q6H PRN Magic Mouthwash Diphen/Nystat/Antacid 1:1:1 10 mL PO QID Magic Mouthwash Diphen/Nystat/Antacid 1:1:1 5 mL PO TID metformin ER 1,000 mg PO BID ondansetron 8 mg PO Q8H oxybutynin chloride ER 10 mg PO DAILY 90 days venlafaxine ER 37.5 mg PO DAILY walker As Directed. Heavy duty, walker with seat, wheals and hand brakes. walker Walker with seat. As Directed walker As Directed. Please provide walker with seat, wheals and hand brakes. HPI Comments Details: Patient returns 1 week following excision of a lip lesion. This revealed a pyogenic granuloma. She tolerated the procedure well and denies any ongoing lip symptoms. She feels much improved. She returns today for suture removal. [facility] Medical History Diabetes mellitus Malignant neoplasm of right kidney Vitamin D deficiency Essential hypertension Super obesity Surgical History S/P removal of thyroid nodule (~11/01/23) Family History Brother Breast cancer Melanoma Social History Household Members: Children and Adopted Family Patient Tobacco Use Status: Never used Tobacco service: No Current occupational status: employed Physical Exam Vital Signs: Last Vital Signs BP 130/62 07/26/24 15:25 BMI result Body Mass Index 61.3 HEENT Other: Excision site in the right upper lip is clean, dry, and intact. The suture was removed and the wounds found to be well healed. There is no evidence of bleeding at this time. Assessment & Plan Assessment & Plan (1) Lesion of lip: Code(s): K13.0 - Diseases of lips Category: Medical Plan Patient tolerated the excision of a pyogenic granuloma right upper lip well. Her wounds are clean and intact. She should follow up as needed. Coding Level of Care Code Global (80687) Diagnoses Lesion of lip K13.0
[2024-07-26 15:25] VITALS: BP 130/62; BMI 61.3
== END 2024-07-26 15:52 | disposition home or self-care (01) ==
PROVIDERS: PCP Internal Medicine; Visit Provider Surgery
DX: K13.0 Diseases of lips (principal)
CPT/HCPCS: 99024

== ENCOUNTER → 2024-07-26 15:14 | Outpatient (BNVA) | payer MEDICAID, SELFPAY | PROVIDERS: PCP Internal Medicine; Visit Provider Surgery | DX: K13.0 Diseases of lips (principal) | CPT/HCPCS: 99212 ==

== ENCOUNTER 2024-08-15 11:40 | Outpatient (AMB) | payer MEDICAID, SELFPAY ==
--- NOTE | 2024-08-15 11:40 | MHC.OFFVIS ---
Intake Visit Reasons: 6m follow up Intake Note: Patient is Present for Telephone Follow Up Urology Med:Oxybutynin Antibiotic Allergy: Penicillin Blood Thinner: None Allergies penicillin G Allergy (Unknown, Verified 10/17/24 10:19) Unknown Medication List - Last Reconciled 08/15/24 by Sawyer Askew MD acetaminophen 650 mg PO Q4H PRN albuterol sulfate 90 mcg/actuation (ProAir HFA) 1 puff inhalation Q6H PRN amoxicillin-pot clavulanate 875-125 mg 1 tab PO Q12H barium sulfate 2%(w/v) (Readi-Cat 2) 450 mL PO TID jtdifbpvf-oitvnef-cjecontd-pet 20-3-1-64.9 % (Anbesol Cold Sore) 1 ea topical QID butenafine 1% (Lotrimin Ultra) 1 appl topical BID calcium citrate-vitamin D3 315 mg-5 mcg (200 unit) 2 tabs PO BID chair, wheel (Wheel chair) As Directed duloxetine 20 mg PO BID duloxetine (Cymbalta) 20 mg PO BID fesoterodine ER (Toviaz) 8 mg PO DAILY 30 days fluconazole (Diflucan) 100 mg PO DAILY fluconazole (Diflucan) 100 mg PO DAILY fluticasone propionate 50 mcg/actuation 50 mcg intranasal DAILY food supplemt, lactose-reduced (Ensure Plus) 1 ea PO TID levothyroxine 200 mcg PO QAM levothyroxine 25 mcg PO DAILY levothyroxine 200 mcg PO DAILY levothyroxine 50 mcg PO DAILY lidocaine HCl 2% (Lidocaine Viscous) 1 appl mucous membrane TID lisinopril 10 mg PO DAILY loperamide (Anti-Diarrheal (loperamide)) 2 mg PO Q6H PRN Magic Mouthwash Diphen/Nystat/Antacid 1:1:1 10 mL PO QID Magic Mouthwash Diphen/Nystat/Antacid 1:1:1 5 mL PO TID metformin ER 1,000 mg PO BID ondansetron 8 mg PO Q8H oxybutynin chloride ER 10 mg PO DAILY 90 days venlafaxine ER 37.5 mg PO DAILY walker As Directed. Heavy duty, walker with seat, wheals and hand brakes. walker Walker with seat. As Directed walker As Directed. Please provide walker with seat, wheals and hand brakes. HPI Comments Details: Dixie FOSS is a very pleasant female. She is a patient of Dr Morris. She is seen for the following urologic conditions. - renal cancer - overactive bladder Six-month follow-up Oxybutynin continues to be effective - refill Has concerns regarding incisional hernia on lower right abdominal side May well be starting injectable diabetic medication - this is associated with some degree of weight loss Previously discussed intrinsic limitations to repair of lateral body wall which often is result of nerve damage and muscle atrophy which is difficult to correct with typical mesh reinforcement Six month follow-up then can move to yearly Overactive bladder Initial symptoms Urgency and frequency, Involved in bathroom planning, Using supermarket bathrooms , Occasional accidents Current therapy oxybutynin Renal lesion: Nephrectomy January 2020 Thyroid metastases with history of renal cell carcinoma 11/12 07/14 5 year follow-up imaging Chest CT and Abdo CT normal Creatinine 1.2 pT2 Ambrocio 4 cancer with central necrosis Creatinine 1.3 Continue chest x-ray every 6 months out to 3 years then every year - abdominal CT scan yearly for 2 years then every 2nd year to 10 years. They present for Post surgical evaluation, continued followup and management The renal mass was diagnosed 11/08 , incidentally, during evaluation for, GI symptoms - weight loss surgery planning - lesion seen on ultrasound. Imaging included 11/08 , a CT (computed tomography) scan of the abdomen/pelvis - right lower pole kidney 8 cm lesion with central necrosis. Contained within Gerota's fascia. No obvious lymphadenopathy. - chest x-ray no evidence of disease 06/09 - , a CT (computed tomography) scan of the abdomen/pelvis/chest - NAD - 09/10 CT scan abdomen normal, chest x-ray normal - 10/12 CT chest in abdomen no evidence of recurrence. Right lateral sidewall hernia - 05/13 chest x-ray normal - 02/11 CT abdomen. No evidence recurrence. Right sidewall hernia. Prior treatment(s) included Dr Morris - right nephrectomy laparoscopic January 2020. Staging of initial cancer T2. The diagnosis was renal cell carcinoma. Recent labs include 06/09 Cr 1.1, 09/10 1.3 Follow up imaging includes chest xray, abdominal CT scan. Planned therapeutic plan further surveillance with imaging and laboratory investigations appropriate for pathology findings and patient performance status [facility] Medical History Hepatomegaly Hepatic steatosis Neuropathy OAB (overactive bladder) Cancer of kidney Port-A-Cath in place (03/21/24) Diabetes mellitus Malignant neoplasm of right kidney Vitamin D deficiency Essential hypertension Super obesity Surgical History History of excision of lesion (09/17/24) Hx of thyroidectomy (11/01/23) Hx of local excision of skin lesion (07/20/24) History of nephrectomy, right S/P removal of thyroid nodule (~11/01/23) Family History Brother Breast cancer Melanoma Social History Household Members: Children and Adopted Family Are you a primary nurse behavioral health care to a significant other at home: No Do you presently have visiting nurse or other home services: No Patient Tobacco Use Status: Never used Tobacco service: No Current occupational status: employed Review of Systems Const All systems reviewed & are unremarkable except as noted in HPI and below Denies chills and Denies fever(s) Card Reports no additional complaints and Denies syncope Resp Denies cough GI Denies abdominal pain and Denies heartburn Reports as per HPI and Denies change in libido Musc Reports no additional complaints Neuro Denies syncope Psych Denies change in libido Endo Denies change in libido Physical Exam Telemedicine evaluation Appropriate responses Regular breathing rate and rhythm HEENT Head: Yes normal to inspection Ears: hearing grossly normal bilaterally Eyes General: appearance normal, both eyes and all related structures Neck Neck: Yes normal visual inspection Chest Chest palpation & inspection: normal inspection of the chest Resp Effort & Inspection: normal respiratory effort and able to speak in complete sentences Telehealth Telehealth Location of provider rendering services: practice address Location of patient: address on file Patient Identification confirmed using: Name, : Yes Telehealth method: video Patient verbally consented to treatment: Yes Patient verbally consented to billing insurance company: Yes Patient informed of any privacy concerns related to visit: Yes Assessment & Plan Assessment & Plan (1) Renal cancer: Comment: Nephrectomy January 2020 PT2 Grade 4 Code(s): C64.9 - Malignant neoplasm of unspecified kidney, except renal pelvis Category: Medical (2) Overactive bladder: Comment: Good response oxybutynin Code(s): N32.81 - Overactive bladder Category: Medical Plan Trial Toviaz. Two month follow-up Medications: New fesoterodine ER (Toviaz) 8 mg PO DAILY 30 tabs 1RF 30 days N32.0 - Bladder-neck obstruction, N39.41 - Urge incontinence Patient Instructions: Imaging studies, laboratory and physical exam results were discussed and reviewed in detail. No major barriers to patient understanding were identified. An opportunity to ask questions regarding the treatment plan was provided. All questions were answered. The patient expressed understanding and agreement with the above treatment plan. The patient is aware they should contact our office by phone for worsening of their current condition or the appearance of new urologic symptoms. Compliance is encouraged with any medications and followup testing that is ordered. It is a privilege to participate in the urologic care of your patient. If you have any questions or concerns regarding treatment for the above conditions, or other urologic issues, please do not hesitate to contact me. The office telephone contact is [phone]. This note is constructed using voice recognition software. While every effort has been made to ensure accuracy maintenance specialist errors may have been included. Yours sincerely, Dr Sawyer Askew MD, [facility] - Urology Providers of Expert, Compassionate Care for the Genitourinary System Coding Level of Care Code Tele Est Pt Level 4 (20189) Diagnoses Renal cancer C64.9 Overactive bladder N32.81
== END 2024-08-15 12:18 | disposition home or self-care (01) ==
LOC: HO.HUSH 11:40
PROVIDERS: PCP Internal Medicine; Visit Provider Urology
DX: C64.9 Malignant neoplasm of unspecified kidney, except renal pelvis (principal); N32.81 Overactive bladder
CPT/HCPCS: 99214

== ENCOUNTER → 2024-08-15 11:40 | Outpatient (BNVA) | payer MEDICAID, SELFPAY | PROVIDERS: PCP Internal Medicine; Visit Provider Urology ==

== ENCOUNTER 2024-08-30 09:12 | Outpatient (AMB) | payer MEDICAID, SELFPAY ==
--- NOTE | 2024-08-30 09:20 | MHC.OFFVIS ---
Intake Visit Reasons: recurrent lip lession Intake Note: Patient is seen in office for recurrent right upper lip lesion. 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 This was recently excised and revealed a pyogenic granuloma. Soon after removal of the sutures the lesion returned and has been increasing in size since then. She denies any pain does note the lesion to be more in the inner portion of the lip. She is concerned about bleeding from the lesion once again. [facility] Medical History Diabetes mellitus Malignant neoplasm of right kidney Vitamin D deficiency Essential hypertension Super obesity Surgical History S/P removal of thyroid nodule (~11/01/23) Family History Brother Breast cancer Melanoma Social History Household Members: Children and Adopted Family Patient Tobacco Use Status: Never used Tobacco service: No Current occupational status: employed Review of Systems Const All systems reviewed & are unremarkable except as noted in HPI and below Physical Exam Const General: comfortable Nutritional Appearance: obese Orientation/consciousness: patient oriented x3 Limitations: ambulation with walker HEENT Nose image: 1. 1 cm raised multilobulated hemangioma noted in the right upper lip. Lesion is nontender to palpation. Findings consistent with pyogenic granuloma. Resp Effort & Inspection: normal respiratory effort, no audible wheezes, no cough and no respiratory distress GI Inspection: Yes normal to inspection Skin Other: Warm, dry, no rash Neuro General: patient oriented x3 Assessment & Plan Assessment & Plan (1) Pyogenic granuloma of lip: Code(s): L98.0 - Pyogenic granuloma Category: Medical Plan 64-year-old female patient returning with a recurrent growth in the right upper lip, previously diagnosed with a pyogenic granuloma. She will need a wider wedge excision of the granuloma best performed in the OR under anesthesia. I reviewed the procedure, risks, and alternatives in detail and she consents to wide excision of the right upper lip pyogenic granuloma. Coding Level of Care Code Est Pt Level 4 (76013) Diagnoses Pyogenic granuloma of lip L98.0
== END 2024-08-30 09:24 | disposition home or self-care (01) ==
PROVIDERS: PCP Internal Medicine; Visit Provider Surgery
DX: L98.0 Pyogenic granuloma (principal)
CPT/HCPCS: 99214

== ENCOUNTER → 2024-08-30 09:12 | Outpatient (BNVA) | payer MEDICAID, SELFPAY | PROVIDERS: PCP Internal Medicine; Visit Provider Surgery | DX: L98.0 Pyogenic granuloma (principal) | CPT/HCPCS: 99212 ==

== ENCOUNTER 2024-09-17 07:45 | Day surgery (SDC) | payer MEDICAID, SELFPAY ==
[2024-09-17] VITALS (8 sets, daily range): BP systolic 94–130; BP diastolic 57–70; PULSE 81–97; RESP 16–18; TEMP 36.2–36.7; O2SAT 97–99; BMI 61.8
[2024-09-17 08:48] LABS: Glucose, Whole Blood 212 mg/dL (60-115)
--- NOTE | 2024-09-17 08:49 | MHC.SHP ---
Pre-Procedural Eval Section A - 24 Hr Update-Section A only Date of Service: 09/17/24 The patient is an INPATIENT: No Changes since office visit: Yes Patient answered all questions; No Cold of Flu in the past 2 weeks, No New Medical Problems and No Changes in Medication The patient has been examined within 24 hours of the surgical procedure. The History & Physical has been completed within 30 days and I have reviewed it.: Yes Section B - Complete if H&P > 30 days Chief Complaint: Pyogenic granuloma Allergies: Allergies Allergy/AdvReac Type Severity Reaction Status Date / Time penicillin G Allergy Unknown Unknown Verified 09/17/24 08:11 Plan Diagnosis/Plan: Unchanged I have reviewed the history and physical and performed a pertinent physical examination on my patient. No changes have occurred unless specified. Time Spent With Patient Time: Total time managing care of this patient today ____ minutes.
[2024-09-17] MEDS: Lactated Ringers 1,000 ML 100 ML IVCONT (08:56)
[2024-09-17] MEDS: vancomycin/NS 2,000 MG/500 ML PLAST..BAG 250 MG IV (08:57)
--- NOTE | 2024-09-17 08:58 | HO.ANESPROP2 ---
FORMERLY [facility], 1928–1983 Active Problems Active Problems: All Active Problems Pyogenic granuloma of lip (Acute) Lesion of lip (Acute) Metastatic renal cell carcinoma (Acute) Incisional hernia (Acute) Overactive bladder (Acute) Urinary urgency (Acute) Renal cancer (Acute) Complex renal cyst (Acute) Past Medical History Medical History Hepatomegaly Hepatic steatosis Neuropathy OAB (overactive bladder) Cancer of kidney Port-A-Cath in place (03/21/24) Diabetes mellitus Malignant neoplasm of right kidney Vitamin D deficiency Essential hypertension Super obesity Family History Family History Brother Breast cancer Melanoma Surgical History Surgical History Hx of thyroidectomy (11/01/23) Hx of local excision of skin lesion (07/20/24) History of nephrectomy, right S/P removal of thyroid nodule (~11/01/23) History of Problems with Anesthesia: No Social History Social History Household Members: Children and Adopted Family Are you a primary care clinician to a significant other at home: No Do you presently have visiting nurse or other home services: No Patient Tobacco Use Status: Never used Tobacco Have you been hit, kicked, punched, or otherwise hurt by someone within the past year? If so, by whom?: No Are you DNR?: No Advance Directives: No Advance Directives Information Provided: Yes Recently lost weight without trying: No Nutrition Risks: No Nutritional Risk service: No Current occupational status: employed Meds Allergies Allergy/AdvReac Type Severity Reaction Status Date / Time penicillin G Allergy Unknown Unknown Verified 09/17/24 08:11 Active Medications: Current Medications Lactated Ringer's (Lr) 1,000 mls @ 100 mls/hr IVCONT .Q10H LIZ Last Admin: 09/17/24 08:56 Dose: 100 mls/hr Vancomycin HCl (Vancomycin/Ns) 2,000 mg in 500 mls @ 250 mls/hr IV PREOP ONE Stop: 09/17/24 10:14 Last Admin: 09/17/24 08:57 Dose: 250 mls/hr Home Medications ?Medication ?Instructions ?Recorded ?Confirmed ?Last Taken ?Type albuterol sulfate 90 mcg/actuation 1 puff inhalation Q6H PRN dyspnea 04/21/22 09/17/24 Unknown History aerosol inhaler (ProAir HFA) fluticasone propionate 50 50 mcg intranasal DAILY 10/25/22 09/17/24 Unknown History mcg/actuation nasal spray,suspension acetaminophen 325 mg tablet 650 mg PO Q4H PRN pain 12/06/23 09/17/24 Unknown History calcium citrate 315 mg-vitamin D3 2 tab PO BID 12/06/23 09/17/24 Unknown History 5 mcg (200 unit) tablet lisinopril 10 mg tablet 10 mg PO DAILY 12/06/23 09/17/24 Unknown History metformin 500 mg tablet,extended 1,000 mg PO BID 12/06/23 09/17/24 Unknown History release 24 hr venlafaxine 37.5 mg 37.5 mg PO DAILY 12/06/23 09/17/24 Unknown History capsule,extended release 24 hr Exam Height,Weight and Vital Signs: Height 5 ft 2 in Weight 153.314 kg Last Vital Signs Temp 98.1 F 09/17/24 08:31 Pulse 97 09/17/24 08:31 Resp 18 09/17/24 08:31 BP 119/60 09/17/24 08:31 Pulse Ox 97 09/17/24 08:31 O2 Del Method Room Air 09/17/24 08:31 Pertinent Lab Results Pertinent Lab Results: Laboratory Tests 09/17/24 08:44 POC Glucose 212 H Airway Mallampati Class: III TM Dist: >3cm Neck ROM: Limited Loose/Missing/Broken Teeth: Yes Heart: RRR Lungs: CTA Assessment and Plan Assessment Anesthesia Assessment: Anesthesia Plan Discussed and Chart Reviewed Final Anesthetic Review History of Problems with Anesthesia: No NPO: Yes ASA Class: III Final Preanesthetic Review: Meds/Allgs Chart Reviewed, Consent Obtained/Reviewed and Anes Risks/Benef Reviewed Patient Risk: Intermediate Procedure Risk: Low Anesthetic Plan Anesthetic Plan: MAC: Disposition: Standard PACU
--- NOTE | 2024-09-17 10:01 | W.PM.OPN ---
Operative Note Operative Note Date of Service: 09/17/24 Narrative: Preoperative diagnosis: Pyogenic granuloma right upper lip Postoperative diagnosis: Same Procedure: Excision of pyogenic granuloma right upper lip Surgeon: Benjamin Alfredo MD Finisher Wallboard [employer] Plasterboard: Susie Adkins PA-C Anesthesia: Local plus MAC Indications for procedure: Large granuloma right upper lip Operative findings: Large granuloma right upper lip proximally 2 cm diameter Specimen: Pyogenic granuloma right upper lip Estimated blood loss: Less than 1 mL Complications: None Procedure details: Patient was brought to the OR and placed in a supine position. After administering light sedation the patient's right upper lip was prepped with Betadine and draped in a sterile fashion. A surgical time-out was called the consent confirmed. Patient received preoperative antibiotics and Venodyne boots were in place. Local anesthesia consisting of 0.5% Sensorcaine with epinephrine was then infiltrated below the lesion. An elliptical incision at the base of the lesion was then performed in a radial fashion extending up the vermilion border. The lesion was completely excised using the scalpel and sent to pathology for further examination. Hemostasis was then achieved using electrocautery. Skin was then closed using interrupted 5 0 catgut sutures. Bacitracin ointment was then applied. The patient tolerated the procedure well. Sponge, instrument, and needle counts reported as correct. The patient was transferred to PACU in stable condition.
== END 2024-09-17 12:02 | disposition home or self-care (01) ==
PROVIDERS: PCP Internal Medicine; Visit Provider Surgery
PROC: (CPT 11442; principal; 2024-09-17 09:50)
DX: L98.0 Pyogenic granuloma (principal); I10 Essential (primary) hypertension; E11.9 Type 2 diabetes mellitus without complications; E55.9 Vitamin D deficiency, unspecified; Z85.528 Personal history of other malignant neoplasm of kidney; Z90.5 Acquired absence of kidney; Z79.84 Long term (current) use of oral hypoglycemic drugs; Z79.899 Other long term (current) drug therapy; Z88.0 Allergy status to penicillin
CPT/HCPCS: 11442; 82947; 88305; J2003; J2250; J2704; J2795; J3010; J3370

== ENCOUNTER → 2024-09-17 07:45 | Outpatient (BNV) | payer MEDICAID, SELFPAY | PROVIDERS: PCP Internal Medicine; Visit Provider Surgery | DX: L98.0 Pyogenic granuloma (principal) | CPT/HCPCS: 11442 ==

== ENCOUNTER 2024-09-27 14:44 | Outpatient (AMB) | payer MEDICAID, SELFPAY ==
--- NOTE | 2024-09-27 14:47 | MHC.OFFVIS ---
Vital Signs 09/27/24 14:54 Height 5 ft 2 in Weight 337 lb 15.498 oz BMI 61.8 Respiration 16 Pulse 90 Intake Visit Reasons: s/p Wide excision rt upper lip Intake Note: Patient is seen in office for post op assessment post excision of pyogenic granuloma right upper lip. Pt c/o: denies any concerns, healing surgery:09/17/24 Host/Hostess Head Required: No Accompanied by: Family/Other Allergies penicillin G Allergy (Unknown, Verified 09/17/24 08:11) Unknown HPI Comments Details: 64-year-old female returning 1 week following excision of a right upper lip pyogenic granuloma. She tolerated the procedure well and feels well today. She denies any bleeding or discharge. Most of the sutures have dissolved but she does feel an area of swelling in the outer lip. FOR[facility], [facility] Medical History Hepatomegaly Hepatic steatosis Neuropathy OAB (overactive bladder) Cancer of kidney Port-A-Cath in place (03/21/24) Diabetes mellitus Malignant neoplasm of right kidney Vitamin D deficiency Essential hypertension Super obesity Surgical History (Updated 09/26/24 @ 14:35 by Giulia Leavitt Jenna) History of excision of lesion (09/17/24) Hx of thyroidectomy (11/01/23) Hx of local excision of skin lesion (07/20/24) History of nephrectomy, right S/P removal of thyroid nodule (~11/01/23) Family History Brother Breast cancer Melanoma Social History Household Members: Children and Adopted Family Are you a primary furnace caretaker to a significant other at home: No Do you presently have visiting nurse or other home services: No Patient Tobacco Use Status: Never used Tobacco service: No Current occupational status: employed Physical Exam Vital Signs: Last Vital Signs Pulse 90 09/27/24 14:54 Resp 16 09/27/24 14:54 BMI result Body Mass Index 61.8 Const General: no acute distress Nutritional Appearance: obese Orientation/consciousness: patient oriented x3 Limitations: ambulation with walker HEENT Nose image: 1. Incision in the right upper lip is clean, dry, and intact. A small residual suture is identified and removed. No evidence of infection or recurrent granuloma. Resp Effort & Inspection: normal respiratory effort Neuro General: patient oriented x3 Assessment & Plan Assessment & Plan (1) Pyogenic granuloma of lip: Code(s): L98.0 - Pyogenic granuloma Category: Medical Plan Patient returns 1 week following excision of a pyogenic granuloma of the lip. She tolerated the procedure well her wounds are healing nicely. She should follow up as needed. Coding Level of Care Code Global (26708) Diagnoses Pyogenic granuloma of lip L98.0
[2024-09-27 14:54] VITALS: PULSE 90; RESP 16; BMI 61.8
== END 2024-09-27 15:00 | disposition home or self-care (01) ==
PROVIDERS: PCP Internal Medicine; Visit Provider Surgery
DX: L98.0 Pyogenic granuloma (principal)
CPT/HCPCS: 99024

== ENCOUNTER → 2024-09-27 14:44 | Outpatient (BNVA) | payer MEDICAID, SELFPAY | PROVIDERS: PCP Internal Medicine; Visit Provider Surgery | DX: L98.0 Pyogenic granuloma (principal) | CPT/HCPCS: 99212 ==

== ENCOUNTER 2024-11-26 11:46 | Outpatient (REF) | payer MEDICARE, MEDICAID, SELFPAY ==
--- NOTE | ~2024-11-26 | CT_ITS ---
EXAMINATION: CT ABDOMEN PELVIS WITH IV CONTRAST HISTORY: Follow-up on renal cell CA, restaging COMPARISON: Comparison is made with the prior examination dated 824. TECHNIQUE: CT scan of the abdomen and pelvis was performed following administration of 85 mL Omnipaque 350 using standard departmental protocol. Coronal and sagittal reformatted images were generated and reviewed. The patient received oral contrast material. This CT exam was performed with one or more of the following dose reduction techniques: automated exposure control, adjustment of the mA and/or kV according to patient size, use of iterative reconstruction technique. DLP: 1531 mGy-cm FINDINGS: LOWER CHEST: The visualized lung bases are clear. There is no pleural effusion. CARDIOVASCULATURE: The heart is normal in size. There is no pericardial effusion. LIVER: The liver is normal in size and contour. Again seen is a 1.5 cm cyst in the left lobe. The hepatic and portal veins are patent. GALLBLADDER / BILE DUCTS: The gallbladder is surgically absent. There is no intra or extrahepatic biliary ductal dilatation. SPLEEN: The spleen is normal in size. No focal splenic lesion is identified. PANCREAS: The pancreas is unremarkable in appearance. ADRENAL GLANDS: Within normal limits. KIDNEYS/RETROPERITONEUM: The patient is again noted to be status post right nephrectomy. No left renal calculi are identified. There is no hydronephrosis. No renal masses are identified. LYMPH NODES: No abdominal or pelvic lymphadenopathy. VASCULATURE: The abdominal aorta is normal in caliber. MESENTERY/PERITONEUM: No free fluid. No masses. There is no free intraperitoneal gas. STOMACH: The stomach is unremarkable. SMALL BOWEL: Again seen is a right ventral hernia containing unobstructed loops of small bowel. The small bowel is normal in caliber. COLON: There is a large amount of stool throughout the colon. APPENDIX: Normal. URINARY BLADDER/PELVIC ORGANS: The urinary bladder is collapsed, limiting evaluation. The uterus is unremarkable. BONES / SOFT TISSUES: There is mild degenerative disc disease of the spine. CT/CT abdomen pelvis w IV con IMPRESSION: Status post right nephrectomy. Stable right ventral hernia containing unobstructed loops of small bowel. No evidence of recurrent or metastatic disease. Electronically signed by: Enio Carrillo MD 11/27/2024 07:07 AM EST
--- NOTE | ~2024-11-26 | CT_ITS ---
CLINICAL HISTORY: Renal cell CA CT chest with contrast Comparison: CT report 11/26/2024 Findings: The heart size is normal. The visualized thyroid and mediastinum are unremarkable. No consolidation. 2 mm nodule of the left upper lobe series 4, image 19. 4.6 mm subpleural nodule of the left upper lobe series 6 image 179. Cyst in the liver dome. No acute fractures. IMPRESSION: Small nonspecific pulmonary nodules. CT chest follow-up as indicated. This document has been electronically signed by: Sweetie Erwin MD on 11/30/2024 17:31:04
[2024-11-26] MEDS: iohexoL 350 MG/ML 100 ML INFUS..BTL IV (15:48)
[2024-11-26] MEDS: Barium Sulfate Oral (Vanilla) 450 ML ORAL.SUSP 900 ML PO (15:50)
== END 2024-11-26 11:47 | disposition home or self-care (01) ==
LOC: HO.CT 11:46
PROVIDERS: PCP Internal Medicine; Visit Provider Internal Medicine Medical Oncology
DX: C64.9 Malignant neoplasm of unspecified kidney, except renal pelvis (principal)
CPT/HCPCS: 71260; 74177; Q9967

== ENCOUNTER → 2024-11-26 11:49 | Outpatient (BNV) | payer MEDICARE, MEDICAID, SELFPAY | PROVIDERS: PCP Internal Medicine; Visit Provider Radiology Diagnostic Radiology | DX: K43.9 Ventral hernia without obstruction or gangrene (principal) | CPT/HCPCS: 74177 ==

== ENCOUNTER 2025-05-31 06:01 | Outpatient (REF) | payer MEDICARE, MEDICAID, SELFPAY ==
--- NOTE | ~2025-05-31 | CT_ITS ---
EXAMINATION: CT CHEST WITH IV CONTRAST, CT ABDOMEN PELVIS WITH IV CONTRAST INDICATION: Follow-up for renal cell carcinoma COMPARISON: Comparison is made with the prior examination dated 11/26/2024. TECHNIQUE: CT scan of the chest, abdomen and pelvis was performed following administration of 85 mL Omnipaque 350 using standard departmental protocol. Coronal and sagittal reformatted images were generated and reviewed. The patient received oral contrast material. This CT exam was performed with one or more of the following dose reduction techniques: automated exposure control, adjustment of the mA and/or kV according to patient size, use of iterative reconstruction technique. DLP: 1508 mGy-cm CHEST: LUNGS: Again seen is a 3 mm subpleural nodule of the left upper lobe (series 4, image 48). The lungs are otherwise clear. MEDIASTINUM: There is no mediastinal lymphadenopathy. ALY: There is no hilar lymphadenopathy. CARDIOVASCULATURE: The heart is normal in size. There is no pericardial effusion. The thoracic aorta is normal in caliber. DEGREE OF CORONARY CALCIFICATION: mild PLEURA: There is no pleural effusion. No pneumothorax. MAIN AIRWAYS: The mainstem bronchi and proximal branches are patent. AXILLA: There is no axillary lymphadenopathy. SOFT TISSUES: Unremarkable. BONES: There is degenerative disc disease of the spine. ABDOMEN: LIVER: The liver is normal in size and contour. Again seen is a 2.2 cm probable cyst at the dome of the liver. The hepatic and portal veins are patent. GALLBLADDER / BILE DUCTS: The gallbladder is surgically absent. There is no intra or extrahepatic biliary ductal dilatation. SPLEEN: The spleen is normal in size. No focal splenic lesion is identified. PANCREAS: The pancreas is unremarkable in appearance. ADRENAL GLANDS: Within normal limits. KIDNEYS/RETROPERITONEUM: The patient is status post right nephrectomy. No left renal calculi are identified. There is no hydronephrosis. No renal masses are identified. LYMPH NODES: No abdominal or pelvic lymphadenopathy. VASCULATURE: The abdominal aorta is normal in caliber. MESENTERY/PERITONEUM: No free fluid. No masses. There is no free intraperitoneal gas. STOMACH: The stomach is unremarkable. SMALL BOWEL: The small bowel is normal in caliber. COLON: There is a large amount of stool throughout the colon. APPENDIX: The appendix is not seen, however no inflammatory changes are seen adjacent to the cecum. URINARY BLADDER/PELVIC ORGANS: The urinary bladder is unremarkable. The uterus is unremarkable. BONES / SOFT TISSUES: Again seen is a ventral hernia on the right containing unobstructed loops of small bowel. There is degenerative disc disease of the spine. CT/CT abdomen pelvis w IV con IMPRESSION: Status post right nephrectomy. No evidence of metastatic disease. Electronically signed by: Enio Carrillo MD 05/31/2025 09:41 AM EDT
--- OUTSIDE RECORDS SUMMARY | 2025-05-31 06:03 | XMS_ITS | Clinical Summary ---
Author Organization [facility] Address [address] [place] [address] Care Team Providers Care Child Care Associate Name Role Phone Chris Hamm PRASHANT Primary Care Provider [phone] Source Comments PLEASE NOTE, if this patient is a minor, it may be UNLAWFUL to discuss sensitive information that is contained in these records (such as FAMILY PLANNING, MENTAL HEALTH or SUBSTANCE ABUSE) with the minor patient's parent or other person without the patient's specific authorization.[facility] Social History Tobacco Use Types Packs/Day Years Used Date Smoking Tobacco: Never Assessed Social Connections Answer Date Recorded Social Connections and Isolation 0 07/15/2019 Financial Resource Strain Answer Date R ecorded Financial Resource Strain 0 2018 Stress Answer Date Recorded Stress 0 07/15/2019 Physical Activity Answer Date Recorded Physical Activity 0 07/15/2019 Food Insecurity Answer Date Recorded Food 0 07/15/2019 Transportation Needs Answer Date Record ed Transportation 0 07/15/2019 Housing Stability Answer Date Recorded Housing 0 07/15/2019 Safety and Environment Answer Date Parveen rded Safety 0 07/15/2019 Utilities Answer Date Recorded Utilities 0 07/15/2019 Employment Answer Date Recorded Employment 0 07/15/2019 Comments Unknown Sex and Gender Information Value Date Recorded Sex Assigned at Not on file Legal Sex Female 7:05 AM PST Gender Identity Not on file Sexual Orientation Not on file Last Filed Vital Signs Vital Sign Reading Time Taken Comments Blood Pressure - - Pulse - - Temperature - - Respiratory Rate - - Oxygen Saturation - - Inhaled Oxygen Concentration - - Weight 165.6 kg (365 lb) 11/10/2016 2:30 PM EST Height 157.5 cm (5' 2 ) 11/10/2016 2:30 PM EST Body Mass Index 66.76 11/10/2016 2:30 PM EST Plan of Treatment Not on file [place] Care Teams Child Care Associate Relationship Specialty Start Date End Date [address] [place] [address] PCP - General Nutrition 11/09/16
[2025-05-31] MEDS: iohexoL 350 MG/ML 100 ML INFUS..BTL IV (09:25)
[2025-05-31] MEDS: Barium Sulfate Oral (Mocha) 450 ML ORAL.SUSP 900 ML PO (09:30)
[2025-05-31 15:11] LABS: Creatinine POC 1.0 mg/dL (0.5-1.4); GFR POC 58
== END 2025-05-31 06:02 | disposition home or self-care (01) ==
LOC: HO.CT 06:01
PROVIDERS: Visit Provider Internal Medicine Medical Oncology
DX: C64.9 Malignant neoplasm of unspecified kidney, except renal pelvis (principal)
CPT/HCPCS: 71260; 74177; 82565; Q9967

== ENCOUNTER → 2025-05-31 06:04 | Outpatient (BNV) | payer MEDICARE, MEDICAID, SELFPAY | PROVIDERS: Visit Provider Radiology Diagnostic Radiology | DX: K43.9 Ventral hernia without obstruction or gangrene (principal); R91.1 Solitary pulmonary nodule | CPT/HCPCS: 71260; 74177 ==